=== PATIENT | female | born 1995 | race Caucasian/White ===

== ENCOUNTER 2017-04-15 23:16 | Emergency (ER) | payer OTHER ==
[2017-04-15 23:31] VITALS: BP 124/84
[2017-04-16] MEDS ORDERED: Ibuprofen TAB* 800 MG PO ONE (00:24)
--- NOTE | 2017-04-16 02:08 | ED ---
Lower Extremity - HPI Summary HPI Summary: Pt here w/ Lt knee injury. Was walking home when she tripped and fell forward on the pavement. Large laceration -painful. Bleeding controlled with pressure. Debris is present. Denies numbness, tingling, weakness. Imms are UTD. - History of Current Complaint Chief Complaint: EDLacSutureRecheck Stated Complaint: FALL//LEFT KNEE LAC Time Seen by Provider: 04/16/17 01:54 Hx Obtained From: Patient Pain Intensity: 6 - Allergies/Home Medications Allergies/Adverse Reactions: Allergies Allergy/AdvReac Type Severity Reaction Status Date / Time No Known Allergies Allergy Verified 04/15/17 23:23 PMH/Surg Hx/FS Hx/Imm Hx Previously Healthy: Yes Endocrine/Hematology History: Denies: Hx Anticoagulant Therapy, Hx Blood Disorders, Autoimmune Disease Infectious Disease History: No Infectious Disease History: Denies: Traveled Outside the [place] in Last 30 Days - Social History Occupation: Student Lives: With Family Alcohol Use: Occasionally Hx Substance Use: No Substance Use Type: Reports: None Hx Tobacco Use: No Smoking Status (MU): Never Smoked Tobacco Review of Systems Negative: Chest Pain Negative: Shortness Of Breath Negative: Vomiting, Nausea Positive: no symptoms reported Musculoskeletal: Other - pain in area of injury Skin: Other - see HPI Neurological: Negative Negative: Weakness, Paresthesia, Numbness Psychological: Other - emotional - tired - otherwise pleasant and cooperative All Other Systems Reviewed And Are Negative: Yes Physical Exam Triage Information Reviewed: Yes Vital Signs On Initial Exam: Initial Vitals Temp Pulse Resp BP Pulse Ox 98.4 F 70 16 124/84 97 04/15/17 23:24 04/15/17 23:24 04/15/17 23:24 04/15/17 23:24 04/15/17 23:24 Vital Signs Reviewed: Yes Appearance: Positive: Well-Nourished, Pain Distress - mild - tearful - reports she's tired Skin: Positive: Warm - jagged laceration over anterior inferior Lt knee Head/Face: Positive: Normal Head/Face Inspection Eyes: Positive: EOMI ENT: Positive: Hearing grossly normal Respiratory/Lung Sounds: Positive: Breath Sounds Present Cardiovascular: Positive: Pulses are Symmetrical in both Upper and Lower Extremities Musculoskeletal: Positive: Normal, Strength/ROM Intact Neurological: Positive: Normal, Sensory/Motor Intact, Alert, Oriented to Person Place, Time, CN Intact II-III Psychiatric: Positive: Normal Procedures - Laceration/Wound Repair 1 Location: lower extremity - Left knee Description: Irregular Anesthesia: Local, Lido, Epi Length, Depth and Shape: 4cm x 4cm (at deepest area) Betadine Prep?: Yes Irrigated w/ Saline (ccs): 500 Laceration/Wound Explored: contaminated - mild debris - removed and clean Closure: Single Layer Suture Type: Prolene - 3-0 Number of Sutures: 9 - 2 horizontal mattress, 7 simple interrupted Layer Closure?: No Sterile Dressing Applied?: Yes - triple anbx + sterile gauze + JOSSELIN wrap Diagnostics - Vital Signs Vital Signs Temp Pulse Resp BP Pulse Ox 04/15/17 23:24 98.4 F 70 16 124/84 97 - Laboratory Lab Statement: Any lab studies that have been ordered have been reviewed, and results considered in the medical decision making process. Lower Extremity Course/Dx - Diagnoses Provider Diagnoses: Contusion of left knee, Laceration of left knee Discharge - Discharge Plan Condition: Stable Disposition: HOME Prescriptions: Cephalexin CAP* [Keflex CAP*] 500 mg PO QID #38 cap Patient Education Materials: Care For Your Stitches (ED), Laceration (ED), Contusion in Adults (ED), Knee Immobilizer (ED) Referrals: [facility] [Primary Care Provider] - Additional Instructions: Rest, ice, elevate Wear immobilizer until sutures are removed Keep dressing clean, dry and intact for 48 hours. After this time, you may remove dressing to gently wash wound with soap and water daily - rinse well and pat dry with clean cloth - reapply triple antibiotic ointment and redress with clean gauze. Follow-up with PCP in 14 days for wound recheck and suture removal. You may take ibuprofen with food for pain/swelling. Complete antibiotics as directed *If you develop redness, swelling, streaking, purulent drainage, fever, chills, seek medical attention
[2017-04-16] MEDS ORDERED: Cephalexin CAP* 500 MG PO ONE ×2 (03:12→03:13)
== END 2017-04-16 03:28 | disposition home or self-care (01) ==
LOC: ED 23:16
DX: S80.02XA Contusion of left knee, initial encounter (principal); S81.012A Laceration without foreign body, left knee, initial encounter; W19.XXXA Unspecified fall, initial encounter; Y93.9 Activity, unspecified; Y92.9 Unspecified place or not applicable
CPT/HCPCS: 12001; 99282; A9270-GY

== ENCOUNTER 2019-10-13 20:59 | Emergency (ER) | payer OTHER ==
[2019-10-13 21:07] VITALS: BP 108/57
--- NOTE | 2019-10-13 21:15 | UC ---
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 Tolerating fluids, mostly vomiting after eating. Mild abdominal cramping attributed to menses. - History of Current Complaint Chief Complaint: UCRespiratory Stated Complaint: VOMITING Time Seen by Provider: 10/13/19 21:08 Hx Obtained From: Patient Hx Last Menstrual Period: 10/11/19 Onset/Duration: Sudden Onset, Lasting Days - 2 Severity Currently: Moderate Severity Initially: Moderate Pain Intensity: 8 Associated Signs & Symptoms: Positive: Fever, Myalgia, Sore Throat, Vomiting, Diarrhea - Risk Factors Influenza Risk Factors: Negative - Allergy/Home Medications Allergies/Adverse Reactions: Allergies Allergy/AdvReac Type Severity Reaction Status Date / Time No Known Allergies Allergy Verified 10/13/19 21:07 Home Medications: Home Medications FLUoxetine CAP* [Prozac CAP*] 30 mg PO DAILY 10/13/19 [History Confirmed ] Fluticasone NASAL SPRAY 50MCG* [Flonase NASAL SPRAY 50MCG*] 1 spray PO DAILY [History Confirmed 10/13/19] Loratadine [Claritin 10 MG CAP] 10 mg PO DAILY 10/13/19 [History Confirmed 10/13] Oseltamivir CAP* [Tamiflu CAP*] 75 mg PO BID #9 cap 10/13/19 [Rx] Valacyclovir HCl [Valacyclovir] 500 mg PO DAILY 10/13/19 [History Confirmed ] guaiFENesin [Mucinex] 600 mg PO Q6HR 10/13/19 [History Confirmed 10/13/19] PMH/Surg Hx/FS Hx/Imm Hx Previously Healthy: Yes - overweight Psychological History: Depression Other History Of: Negative For: Anticoagulant Therapy - Surgical History Surgical History: None - Family History Known Family History: Positive: Hypertension, Diabetes - Social History 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 Negative: Chest Pain Gastrointestinal: Positive: Vomiting, Diarrhea, Nausea Genitourinary: Positive: Negative Motor: Positive: Negative Neurovascular: Positive: Negative Musculoskeletal: Positive: Myalgia Neurological/Mental Status: Positive: Headache Psychological: Positive: Negative Is Patient Immunocompromised?: No Physical Exam Triage Information Reviewed: Yes Appearance: No Pain Distress, Ill-Appearing - congested, looks unwell, Obese Vital Signs: Initial Vital Signs Temp 101.7 F 10/13/19 21:02 Pulse 124 10/13/19 21:02 Resp 18 10/13/19 21:02 BP 108/57 10/13/19 21:02 Pulse Ox 97 10/13/19 21:02 Eyes: Positive: Conjunctiva Clear ENT: Positive: Pharyngeal erythema, Tonsillar swelling. Negative: Tonsillar exudate Neck: Positive: Supple, Nontender, No Lymphadenopathy Respiratory: Positive: Lungs clear, Normal breath sounds, No respiratory distress Cardiovascular: Positive: No Murmur, Pulses Normal, Tachycardia Abdomen Description: Positive: Nontender, No Organomegaly, Soft Musculoskeletal Exam: Normal Neurological Exam: Normal Neurological: Positive: Alert, Muscle Tone Normal Psychological Exam: Normal Skin Exam: Normal Diagnostics - Laboratory Lab Results: influenza B positive Flu Course/Dx - Course Course Of Treatment: Clear fluids, will try imodium for diarrhea. --no antinauseants due to interaction with SSRI's Tamiflu given. - Differential Dx/Diagnosis Differential Diagnosis/HQI/PQRI: Influenza, Other - gastroenteritis Provider Diagnosis: Influenza B Discharge ED - Sign-Out/Discharge Documenting (check all that apply): Patient Departure All imaging exams completed and their final reports reviewed: No Studies - Discharge Plan Condition: Stable Disposition: HOME Prescriptions: Oseltamivir CAP* [Tamiflu CAP*] 75 mg PO BID #9 cap Patient Education Materials: Influenza (ED) Forms: *Work Release Referrals: No Primary Care Phys,[facility] [Primary Care Provider] - Additional Instructions: You have influenza B. Please take the full course of Tamiflu (note that side effects include nausea and loose stools.). Continue use of acetaminophen or ibuprofen for fever. Continue a steady intake of fluids to prevent dehydration. You can use imodium to slow diarrhea. Rest at home until you are 24 hours without fever. Follow up if you have increasing shortness of breath, chest pain or symptoms of dehydration (not passing urine/feeling faint). - Billing Disposition and Condition Condition: STABLE Disposition: Home
[2019-10-13 21:23] LABS: Influenza B Molecular POSITIVE (Negative)
[2019-10-13] MEDS ORDERED: Acetaminophen TAB* 325 MG PO ONE (21:49)
[2019-10-13] MEDS ORDERED: Oseltamivir CAP* 75 MG CAP PO ONE (21:49)
== END 2019-10-13 22:05 | disposition home or self-care (01) ==
LOC: UCEAST 20:59
DX: J10.1 Influenza due to other identified influenza virus with other respiratory manifestations (principal); E66.3 Overweight; F32.9 Major depressive disorder, single episode, unspecified; Z79.899 Other long term (current) drug therapy
CPT/HCPCS: 99212; A9270-GY; G0463